=== PATIENT | female | born 1995 | race Caucasian/White ===

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

== ENCOUNTER 2017-04-22 17:50 | Emergency (ER) | payer OTHER ==
[~2017-04-22] VITALS: Ht 152.4 cm; Wt 89.9 kg
[2017-04-22 17:57] VITALS: BP 132/53
--- NOTE | 2017-04-22 18:00 | NUR ---
22F BIB FAMILY C/O INTERMITTENT RASH TO BL ARMS X 1 MONTH. DENIES N/V/D; SKIN IS PINK/WARM/DRY; AAOX4 WITH EVEN AND STEADY GAIT; LUNGS CLEAR BL; HR EVEN AND REGULAR; PT DENIES ANY FEVER, CP, SOB, OR COUGH AT THIS TIME; PATIENT STATES PAIN OF 4/10 AT THIS TIME; VSS; PATIENT POSITIONED FOR COMFORT; HOB ELEVATED; BEDRAILS UP X2; BED DOWN. ER MD MADE AWARE OF PT STATUS.
--- NOTE | 2017-04-22 18:00 | NUR ---
PT AMBULATED TO BED8
--- NOTE | 2017-04-22 18:01 | NUR ---
Patient being evaluated by DR GRIFFITH at bedside.
[2017-04-22 18:18] VITALS: BP 121/61
--- NOTE | 2017-04-22 18:18 | NUR ---
Patient discharged with v/s stable. Written and verbal after care instructions given and explained. Patient alert, oriented and verbalized understanding of instructions. Ambulatory with steady gait. All questions addressed prior to discharge. ID band removed. Patient advised to follow up with PMD. Rx of BENADRYL & PREDNISONE given. Patient educated on indication of medication including possible reaction and side effects. Opportunity to ask questions provided and answered.
== END 2017-04-22 18:18 | disposition home or self-care (01) ==
LOC: MED 17:50
DX: R21 Rash and other nonspecific skin eruption (principal); L29.9 Pruritus, unspecified
CPT/HCPCS: 99283

== ENCOUNTER 2018-08-05 20:22 | Emergency (ER) | payer SELFPAY ==
[~2018-08-05] VITALS: Ht 154.9 cm; Wt 85.7 kg
[2018-08-05 20:31] VITALS: BP 124/75
--- NOTE | 2018-08-05 20:31 | NUR ---
TO BED # 2 AMBULATORY. REPORT GIVEN TO KAVITHA OCAMPO
--- NOTE | 2018-08-05 20:32 | NUR ---
PT PRESENTED ER WITH C/O PAIN TO THE LEFT TOE X 4 DAYS. PT STATED SHE HIT HER TOE AND LITTLE BY LITTLE THE PAIN HAS INCREASED. THE TOE HAS SOEM SWELLING AND BRUISING. PT DENIES HAVING NUMBNESS. PT IS A/O X 4. PT HAS PAIN LEVEL 4/10. NKA AND NO PREVIOUS MEDICAL HX. SKIN IS PINK/WARM/DRY; EVEN AND STEADY GAIT; VSS; PATIENT POSITIONED FOR COMFORT; HOB ELEVATED; BEDRAILS UP X2; BED DOWN. ER MD MADE AWARE OF PT STATUS.
--- NOTE | 2018-08-05 20:40 | NUR ---
Patient being evaluated by physician at bedside.
[2018-08-05] MEDS ORDERED: LIDOCAINE 1% 500 MG/50 ML VIAL INJ SCH (20:45)
[2018-08-05] MEDS ORDERED: LIDOCAINE MPF 1% - 5 mL VIAL 0 ML ONE (21:26)
[2018-08-05 22:15] VITALS: BP 113/64
--- NOTE | 2018-08-05 22:15 | NUR ---
Patient discharged with v/s stable. Written and verbal after care instructions given and explained. Patient alert, oriented and verbalized understanding of instructions. Ambulatory with steady gait. All questions addressed prior to discharge. ID band removed. Patient advised to follow up with PMD. Rx of Keflex and Naproxen given. Patient educated on indication of medication including possible reaction and side effects. Opportunity to ask questions provided and answered.
== END 2018-08-05 22:15 | disposition home or self-care (01) ==
LOC: MED 20:22
DX: L60.0 Ingrowing nail (principal)
CPT/HCPCS: 11765; 73660; 99283; Q0092; J2001